=== PATIENT | male | born 1950 | race Caucasian/White ===

== ENCOUNTER 2024-01-19 12:44 | Day surgery (SDC) | payer MEDICARE | END 2024-01-19 15:05 | disposition home or self-care (01) | LOC: CSHRAD 12:44 | PROVIDERS: ATTEND Neurological Surgery | PROC: B02BYZZ Computerized Tomography (CT Scan) of Spinal Cord using Other Contrast (ICD-10-PCS; principal; 2024-01-19) | DX: D48.0 Neoplasm of uncertain behavior of bone and articular cartilage (principal); M47.14 Other spondylosis with myelopathy, thoracic region | CPT/HCPCS: 62284; 72129; 77003 ==

== ENCOUNTER 2025-05-14 17:32 | Inpatient (IN) | payer MEDICARE ==
[2025-05-14] MEDS ORDERED: Ondansetron PF 4 MG/2 ML Vial ONE ×2 (17:38→18:59)
[2025-05-14 18:06] LABS: ALT (SGPT) 20 U/L (Less than 45); AST (SGOT) 21 U/L (11-34); Albumin 5.0 g/dL (3.1-4.5); Alkaline Phosphatase 142 U/L (40-110); Anion Gap 28 mmol/L (10-20); BUN (Urea Nitrogen) 46 mg/dL (8.4-25.7); Bilirubin, Total 1.7 mg/dL (0.3-1.2); Calc. Creatinine Clearance 0 mL/min (70-130); Calcium 11.4 mg/dL (7.8-10.44); Carbon Dioxide 14 mmol/L (23-31); Chloride 102 mmol/L (98-107); Globulin 2.8 g/dL (2.4-3.5); Lipase 32 U/L (8-78); Magnesium 1.1 mg/dL (1.6-2.6); Potassium 3.8 mmol/L (3.5-5.1); Sodium 140 mmol/L (136-145)
[2025-05-14 18:09] LABS: Glucose 536 mg/dL (83-110)
[2025-05-14 18:17] LABS: Troponin I 0.030 ng/mL (< 0.028)
[2025-05-14 18:45] LABS: Actual Bicarbonate (HCO3v) 19.0 mEq/L (22-28); Analyzer IN Cardio CS ER; Base Excess -3.9 mEq/L (-2 - +2); Calcium, Ionized (venous) 1.22 mmol/L (1.16-1.32); Chloride (VBG) 103 mmol/L (98-106); Hematocrit-VBG 42 % (42.0-52.0); Hemoglobin (Hb) 14.2 g/dL (12.6-17.4); Potassium (VBG) 4.11 mmol/L (3.70-5.30); Puncture Site Other Site; RapidComm Collect By Lab; Sodium 142 mmol/L (133-146)
[2025-05-14 18:52] LABS: Hematocrit 41.4 % (38.8-50.0); Hemoglobin 14.1 g/dL (13.5-17.5); Mean Corpuscular Hemoglobin 30.8 pg (27.0-33.0); Mean Corpuscular Volume 90.4 fL (81.2-95.1); Platelet Count 181 10x3/uL (150-450); Red Blood Cell (RBC) Count 4.58 10x6/uL (4.32-5.72); White Blood Cell (WBC) Count 31.76 10x3/uL (3.5-10.5)
[2025-05-14] MEDS ORDERED: NS 0.9% w/ 20 MEQ KCL 1,000 ML ONE (18:59)
[2025-05-14] MEDS ORDERED: Magnesium 2 GM/50 ML BAG (IN WATER) ONE (18:59)
[2025-05-14] MEDS ORDERED: Cefepime 2 GM VIAL ONE (18:59)
[2025-05-14] MEDS ORDERED: INSULIN REGULAR IN 0.9 % NACL 100 ML ONE (19:00)
[2025-05-14 19:56] LABS: MDiff Complete? YES; Platelet Adequacy Comment Appears Adequate; RBC Morphology Within Normal Limits
[2025-05-14] MEDS ORDERED: HYDROmorphone 0.5 MG/0.5 ML SYRINGE ONE (20:43)
[2025-05-14] MEDS ORDERED: Calcium Carbonate 500 MG ChewTAB PO PRN (22:12)
[2025-05-14] MEDS ORDERED: Acetaminophen 325 MG TAB PO PRN (22:12)
[2025-05-14] MEDS ORDERED: Guaifenesin DM 100-10/5 ML UDCUP PO PRN (22:12)
[2025-05-14 22:26] LABS: Acetaminophen Less than 10 mcg/mL (Less than 10); Salicylate Less than 8.0 mg/dL (Less than 8.0)
[2025-05-14] MEDS ORDERED: D5 1/2 NS w/20 mEq KCL 1,000 ML ONE (22:52)
[2025-05-14] MEDS ORDERED: Dextrose 50% Abboject 50 ML SYRINGE ONE (22:59)
[2025-05-15] MEDS: Ondansetron PF 4 MG/2 ML Vial IVP PRN (01:27)
[2025-05-15] MEDS: LevoFLOXacin 500 mg/D5W 500 MG in Premix 1 BAG IVPB SCH (01:45)
[2025-05-15] MEDS: cloNIDine 0.1 MG TAB PO SCH (01:54)
[2025-05-15] MEDS ORDERED: INSULIN REGULAR IN 0.9 % NACL 100 ML IVPB SCH (02:00)
[2025-05-15 02:43] LABS: Cocaine Metabolite Screen Negative (Negative); THC/Cannabinoid Screen PRELIM POSITIVE (Negative); Tricyclic Screen Negative (Negative)
[2025-05-15] MEDS: PNEUMOC 20-VAL CONJ-DIP CRM/PF 0.5 ML SYRINGE IM ONE (04:02)
[2025-05-15 05:08] LABS: Platelet Count 125 10x3/uL (150-450)
[2025-05-15 05:09] LABS: Hematocrit 31.9 % (38.8-50.0); Hemoglobin 10.8 g/dL (13.5-17.5); Mean Corpuscular Hemoglobin 30.7 pg (27.0-33.0); Mean Corpuscular Volume 90.6 fL (81.2-95.1); Red Blood Cell (RBC) Count 3.52 10x6/uL (4.32-5.72); White Blood Cell (WBC) Count 21.32 10x3/uL (3.5-10.5)
[2025-05-15 05:12] LABS: Anion Gap 12 mmol/L (10-20); BUN (Urea Nitrogen) 32 mg/dL (8.4-25.7); Calc. Creatinine Clearance 55 mL/min (70-130); Calcium 8.8 mg/dL (7.8-10.44); Carbon Dioxide 18 mmol/L (23-31); Chloride 115 mmol/L (98-107); Glucose 210 mg/dL (83-110); Magnesium 1.3 mg/dL (1.6-2.6); Potassium 4.1 mmol/L (3.5-5.1); Sodium 141 mmol/L (136-145)
[2025-05-15 05:32] LABS: MDiff Complete? YES; Platelet Adequacy Comment Appears Adequate; RBC Morphology Within Normal Limits
[2025-05-15] MEDS: Lantus 1000 UNITS/10 ML VIAL SC SCH (05:38)
[2025-05-15 05:41] LABS: Troponin I 0.295 ng/mL (< 0.028)
[2025-05-15] MEDS ORDERED: Dextrose 50% Abboject 50 ML SYRINGE SLOW IVP PRN (05:46)
[2025-05-15] MEDS ORDERED: Glucagon 1 MG/ML KIT IM PRN (05:46)
[2025-05-15] MEDS: Magnesium 2 GM/50 ML(in water) 2 GM in Premix 1 BAG IVPB SCH (05:46)
[2025-05-15] MEDS: Potassium Phosphate 30 MMOL in Sodium Chloride 0.9% 250 ML 250 ML IVPB SCH (06:16)
[2025-05-15] MEDS: Aspirin 81 mg Enteric Coated Tablet PO SCH (08:35)
[2025-05-15] MEDS: Magnesium Oxide 400 MG TAB PO SCH (08:35)
[2025-05-15] MEDS: TICAGRELOR 90 MG TABLET PO SCH (08:35)
[2025-05-15] MEDS: Pantoprazole 40 MG DR.TAB PO SCH (08:35)
[2025-05-15] MEDS: Enoxaparin 40 MG (0.4 mL) SYRINGE SC SCH (08:36)
[2025-05-15] MEDS: Isosorbide Mononitrate 30 MG ER.TAB.S PO SCH (09:19)
[2025-05-16 01:51] LABS: Campy jejuni + coli by PCR Negative (Negative); STEC Shiga Toxin 1+2 Negative (Negative); Salmonella spp. by PCR Negative (Negative); Shigella spp + EIEC by PCR Negative (Negative)
[2025-05-16 03:19] LABS: Hematocrit 31.7 % (38.8-50.0); Hemoglobin 10.8 g/dL (13.5-17.5); Mean Corpuscular Hemoglobin 31.0 pg (27.0-33.0); Mean Corpuscular Volume 91.1 fL (81.2-95.1); Platelet Count 116 10x3/uL (150-450); Red Blood Cell (RBC) Count 3.48 10x6/uL (4.32-5.72); White Blood Cell (WBC) Count 15.73 10x3/uL (3.5-10.5)
[2025-05-16 03:27] LABS: MDiff Complete? YES; Platelet Adequacy Comment Appears Decreased; RBC Morphology Within Normal Limits
[2025-05-16 03:41] LABS: Anion Gap 13 mmol/L (10-20); BUN (Urea Nitrogen) 20 mg/dL (8.4-25.7); Calc. Creatinine Clearance 63 mL/min (70-130); Calcium 8.7 mg/dL (7.8-10.44); Carbon Dioxide 20 mmol/L (23-31); Chloride 113 mmol/L (98-107); Glucose 130 mg/dL (83-110); Magnesium 1.6 mg/dL (1.6-2.6); Potassium 3.7 mmol/L (3.5-5.1); Sodium 142 mmol/L (136-145)
[2025-05-16 05:23] VITALS: BMI 31.6
[2025-05-16] MEDS: hydrALAZINE 20 MG/ML VIAL SLOW IVP PRN (06:15)
[2025-05-16] MEDS: Promethazine HCl 12.5 MG, Admixture Fee 1 EACH in Sodium Chloride 0.9% 50 ML IVPB SCH (09:34)
[2025-05-16] MEDS: Losartan 50 MG TAB PO SCH (09:42)
[2025-05-16 12:07] VITALS: TEMP 98.5
[2025-05-16] MEDS: HYDROcodone/Acetaminophen 5/325 mg Tablet PO PRN (14:50)
[2025-05-16 19:14] VITALS: BP 137/54
== END 2025-05-16 20:11 | disposition home or self-care (01) | DRG 638 ==
LOC: CSHERS 17:32 → CSHICU 22:00
PROVIDERS: ADMIT Student in an Organized Health Care Education/Training Program; ATTEND Internal Medicine
DX: E11.10 Type 2 diabetes mellitus with ketoacidosis without coma (principal); C91.10 Chronic lymphocytic leukemia of B-cell type not having achieved remission; I5A Non-ischemic myocardial injury (non-traumatic); N17.9 Acute kidney failure, unspecified; R65.10 Systemic inflammatory response syndrome (SIRS) of non-infectious origin without acute organ dysfunction; I44.0 Atrioventricular block, first degree; I45.10 Unspecified right bundle-branch block; E83.42 Hypomagnesemia; E78.5 Hyperlipidemia, unspecified; I12.9 Hypertensive chronic kidney disease with stage 1 through stage 4 chronic kidney disease, or unspecified chronic kidney disease; N18.30 Chronic kidney disease, stage 3 unspecified; E11.22 Type 2 diabetes mellitus with diabetic chronic kidney disease; I25.10 Atherosclerotic heart disease of native coronary artery without angina pectoris; N40.0 Benign prostatic hyperplasia without lower urinary tract symptoms; F32.A Depression, unspecified; F12.90 Cannabis use, unspecified, uncomplicated; F17.210 Nicotine dependence, cigarettes, uncomplicated; G47.33 Obstructive sleep apnea (adult) (pediatric); Z95.818 Presence of other cardiac implants and grafts; Z92.3 Personal history of irradiation; Z98.890 Other specified postprocedural states; Z71.6 Tobacco abuse counseling; Z79.4 Long term (current) use of insulin; Z79.84 Long term (current) use of oral hypoglycemic drugs
CPT/HCPCS: 36415; 36416; 71045; 71275; 74177; 80048; 80053; 80306; 80307; 82010; 82805; 83036; 83605; 83630; 83690; 83735; 83880; 84100; 84145; 84484; 85025; 86140; 87040; 87324; 87449; 87505; 93005; 96374; 96375; J0360; J0692; J1171; J1650; J1815; J1956; J2550; J3475; J3480; J7042; J7050; J7120; J7999